=== PATIENT | male | born 1975 | race Caucasian/White ===

== ENCOUNTER 2023-01-14 06:14 | Day surgery (SDC) | payer OTHER ==
[2023-01-09 14:26] VITALS: BMI 25.4
[2023-01-14] MEDS ORDERED: PROPOFOL 40 ML ONE (11:40)
[2023-01-14] MEDS ORDERED: MIDAZOLAM HCL 2 MG/2 ML SINGLE DOSE VIAL ONE (11:40)
[2023-01-14] MEDS ORDERED: LACTATED RINGERS SOLUTION 1,000 ML IV SCH (12:30)
[2023-01-14] MEDS ORDERED: oxyCODONE HCL 5 MG TABLET PO PRN (12:30)
[2023-01-14] MEDS ORDERED: ONDANSETRON 4 MG/2 ML VIAL IVPUSH PRN (12:30)
[2023-01-14 15:52] VITALS: RESP 17; TEMP 97.2
[2023-01-14 15:56] VITALS: BP 123/85; PULSE 82
== END 2023-01-14 14:20 | disposition home or self-care (01) ==
LOC: FASU 06:14
PROVIDERS: ATTEND Orthopaedic Surgery Hand Surgery
PROC: 0JBK0ZX Excision of Left Hand Subcutaneous Tissue and Fascia, Open Approach, Diagnostic (ICD-10-PCS; principal; 2023-01-14 11:58)
DX: D21.12 Benign neoplasm of connective and other soft tissue of left upper limb, including shoulder (principal)
CPT/HCPCS: 88307-TC; 94760